=== PATIENT | male | born 1980 | race Caucasian/White ===

== ENCOUNTER 2016-09-19 13:21 | Emergency (ER) | payer OTHER ==
[~2016-09-19] VITALS: Ht 172.7 cm; Wt 81.6 kg
[~2016-09-19 13:21] MED LIST: ALBU6.7H IH; ALPR1TAB2 PO; AZIT250T6 PO; CLON0.25 PO; CYCL10TA2 PO; HYDR-971 PO; HYDR1TAB10 PO; IBUP200T5 PO; PRED20TA PO; SERT100T8 PO
--- NOTE | 2016-09-19 13:45 | ED.ADGEN ---
Past History Past Medical History: Schizophrenia Past Surgical History: No Surgical History Smoking: Cigarettes, Greater than 1 pack/day Alcohol Use: Rarely Drug Use: Marijuana Adult General Chief Complaint Chief Complaint Right arm pain [facility] HPI Patient is a 35 year old male who presents with right arm pain. He was lifting a trash can into a dumpster around 9 AM this morning when it fell backwards into his arm. He's been having right arm/bicep pain since then. States it looks deformed. States it hurts more when he tries to lift it. He denies any fevers chills nausea vomiting arm or hand numbness or tingling. Review of Systems Review of Systems Constitutional: Denies fever or chills [] Eyes: Denies change in visual acuity, redness, or eye pain [] HENT: Denies nasal congestion or sore throat [] Respiratory: Denies cough or shortness of breath [] Cardiovascular: No additional information not addressed in HPI [] GI: Denies abdominal pain, nausea, vomiting, bloody stools or diarrhea [] : Denies dysuria or hematuria [] Musculoskeletal: Denies back pain, positive for right upper arm pain Integument: Denies rash or skin lesions [] Neurologic: Denies headache, focal weakness or sensory changes [] Endocrine: Denies polyuria or polydipsia [] Allergies Allergies Allergies Coded Allergies Type Severity Reaction Last Updated Verified No Known Drug Allergies 10/23/13 No Physical Exam Physical Exam Constitutional: Well developed, well nourished, no acute distress, non-toxic appearance. [] HENT: Normocephalic, atraumatic, bilateral external ears normal, oropharynx moist, no oral exudates, nose normal. [] Eyes: PERRLA, EOMI, conjunctiva normal, no discharge. [] Neck: Normal range of motion, no tenderness, supple, no stridor. [] Cardiovascular:Heart rate regular rhythm, no murmur [] Lungs & Thorax: Bilateral breath sounds clear to auscultation [] Abdomen: Bowel sounds normal, soft, no tenderness, no masses, no pulsatile masses. [] Skin: Warm, dry, no erythema, no rash. [] Back: No tenderness, no CVA tenderness. [] Extremities: Tender to palpation over the right biceps with slight laxity noted , nontender through the elbow, radial pulse 2+ in the right upper extremity,no cyanosis, no clubbing, ROM intact, no edema. [] Neurologic: Alert and oriented X 3, normal motor function, normal sensory function, no focal deficits noted. [] Psychologic: Affect normal, judgement normal, mood normal. [] Current Patient Data Vital Signs Vital Signs Date Time Temp Pulse Resp B/P Pulse Ox O2 Delivery O2 Flow Rate FiO2 09/19/16 14:30 85 20 117/70 100 Room Air 09/19/16 13:21 98.0 EKG EKG [] Radiology/Procedures Radiology/Procedures [address] [address] IMAGING REPORT Signed PATIENT: ELLA VILLAFANA ACCOUNT: [id number] : 1980 LOCATION: ER AGE: 35 SEX: M EXAM STATUS: REG ER ORD. PHYSICIAN: LALO DUBOIS MD REASON: pain PROCEDURE: HUMERUS RIGHT Right humerus, 2 views, 09/19/2016: History: Pain No fracture or bony abnormality is detected. The soft tissues are unremarkable. IMPRESSION: No significant right humeral abnormality is detected. DICTATED AND SIGNED BY: FARRAH PARK MD DATE: 09/19/16 5650 CC: VITO STORY MD; LALO DUBOIS MD ~ Course & Med Decision Making Course & Med Decision Making Pertinent Labs and Imaging studies reviewed. (See chart for details) He has a contusion of his right biceps and a possible tendon tear. X-rays of his right humerus did not show any acute abnormalities. He has good radial pulse. He is using ice currently. 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 He is instructed to use ice for brief periods of time and not freeze his arm he also use [id number] Advil and if his arm gets more painful, swollen his fingers turn numb or blue or has weakness in his hand or wrist return back to ER otherwise he is to follow-up with primary care physician and will likely need an outpatient MRI of his upper extremity to rule out biceps tendon tear. At this point is full range of motion and some tenderness of it and at these symptoms resolve that he does not need this test. He is agreeable plan and being discharged in stable condition at this time. Final Impression Final Impression Right arm contusion Problems: Dragon Disclaimer Dragon Disclaimer This electronic medical record was generated, in whole or in part, using a voice recognition dictation system. LALO DUBOIS MD September 19, 2016 13:45
--- NOTE | 2016-09-19 14:27 | RAD ---
Right humerus, 2 views, 09/19/2016: History: Pain No fracture or bony abnormality is detected. The soft tissues are unremarkable. IMPRESSION: No significant right humeral abnormality is detected.
[2016-09-19 14:30] VITALS: BP 117/70
== END 2016-09-19 14:30 | disposition home or self-care (01) ==
LOC: ER 13:21
DX: S40.021A Contusion of right upper arm, initial encounter (principal); F20.9 Schizophrenia, unspecified; F17.210 Nicotine dependence, cigarettes, uncomplicated; F12.10 Cannabis abuse, uncomplicated; W20.8XXA Other cause of strike by thrown, projected or falling object, initial encounter; Y93.89 Activity, other specified; Y92.89 Other specified places as the place of occurrence of the external cause; Y99.8 Other external cause status
CPT/HCPCS: 73060; 99284

== ENCOUNTER 2016-11-26 16:07 | Emergency (ER) | payer OTHER ==
[~2016-11-26] VITALS: Ht 172.7 cm; Wt 67.0 kg
[~2016-11-26 16:07] MED LIST changes: +CYCL-331 PO; -CYCL10TA2 PO; +IBUP-1227 PO; -IBUP200T5 PO
[2016-11-26 16:10] VITALS: BP 153/94
--- NOTE | 2016-11-26 16:25 | PHYS DOC ---
General Chief Complaint: CELLULITIS Stated Complaint: LEFT HAND INJURY Time Seen by MD: 16:15 Source: patient Exam Limitations: no limitations Problems: History of Present Illness Initial Comments Patient is a 35-year-old male who comes to the ED complaining of worker's comp injury. Patient states that yesterday while peeling potatoes he suffered a small laceration on his left index finger. He states that since that time he's had swelling and increased discomfort. He denies fever chills sweats or myalgias, no numbness tingling weakness or radiating symptoms. He is tachycardic on arrival and will require evaluation to rule out sepsis. Onset: yesterday Severity: severe Pain/Injury Location: left hand, left 2nd finger, left 3rd finger Method of Injury: incised Modifying Factors: worse with jarring, worse with movement, improves with rest Allergies: Coded Allergies: No Known Drug Allergies (Unverified , 10/23/13) Past Medical History Medical History: other (schizophrenia) Surgical History: no surgical history Social History Smoker: greater than 1 pack/day Alcohol: occasionally Drugs: marijuana Review of Systems Constitutional: denies chills, denies fever, malaise Respiratory: denies cough, denies shortness of breath, denies wheezing Cardiovascular: denies chest pain, denies palpitations, denies syncope Gastrointestinal: denies abdominal pain, denies nausea, denies vomiting Musculoskeletal: see HPI Skin: see HPI Psychiatric/Neurological: denies headache, denies numbness, denies paresthesia Physical Exam General Appearance: no apparent distress HEENT: PERRL/EOMI, normal ENT inspection Neck: non-tender, supple Cardiovascular/Respiratory: normal peripheral pulses, tachycardia Back: no CVA tenderness, no vertebral tenderness Hand: infection (erythema noted at the left index finger and proximal aspect of the third finger extends 3 cm at the dorsal hand. Painless range of motion no purulence extremity is neurovascularly intact.) Neurologic/Tendon: normal sensation, normal motor functions, normal tendon functions, responds to pain, no evidence tendon injury Psychiatric: alert, oriented x 3 Skin: warm/dry (left hand as above) Orders, Labs, Meds EKG: Normal sinus rhythm 70 bpm, left ventricular hypertrophy, baseline wander artifact noted no STEMI. Interpreted by me Pertinent labs: White blood cells 14.4, potassium 3.3 (a 20 mEq of Klor-Con given by mouth), urine drug screen positive for amphetamine/methamphetamine otherwise labs reassuring. Lactic acid is normal. 1830: Workup is complete patient still has about 1 hour left on his vancomycin intravenous infusion. Discharge paperwork is completed pending no further issues. Departure Time of Disposition: 17:42 Disposition: 01 HOME, SELF-CARE Diagnosis: cellulitis left hand, amphetamethamphetamine abuse Condition: GOOD Patient Instructions: Cellulitis, Ujzk-he-[id number], Methamphetamine Abuse, Complications Additional Instructions: Discontinue tobacco marijuana and methamphetamine abuse. Seek medical assistance if necessary. Warm compresses to left hand 15-20 minutes 4-6 times daily. Prescription: Bactrim DS quantity 20, Bactroban ointment Follow-up with your doctor in 3-5 days for recheck. Return to the ED with new or changing symptoms. Follow-up with your employer regarding Worker's Compensation injury. RAJIV BELLO DO Nov 26, 2016 16:25
[2016-11-26] MEDS ORDERED: VANCOMYCIN PER PHARMACY MC ONE (16:30)
[2016-11-26] MEDS ORDERED: KETOROLAC 30 MG/ML VIAL. IV ONE (16:35)
[2016-11-26] MEDS ORDERED: DIPHTH,PERTUSS(ACELL),TET TOX 0.5 ML DISP.SYRIN. VAX IM ONE (16:35)
[2016-11-26] MEDS ORDERED: IV NORMAL SALINE 1,000ML 1,000 ML IV SCH (16:35)
[2016-11-26] MEDS ORDERED: VANCOMYCIN 1.75 GM in IV NORMAL SALINE 500ML 500 ML IV ONE (16:45)
--- NOTE | 2016-11-26 16:57 | EKG ---
[address] [address] Test Date: 2016-11-26 Test Time: 16:34:23 Pat Name: ELLA VILLAFANA Department: Room: Gender: M [employer] Director: CRISTEL : 1980 Requested By: RAJIV BELLO Order Number: [id number] Reading MD: Measurements Intervals [place] Rate: 78 P: 67 CT: 138 QRS: 71 QRSD: 102 T: 48 QT: 356 QTc: 409 Interpretive Statements SINUS RHYTHM CONSIDER LEFT VENTRICULAR HYPERTROPHY QRS(T) CONTOUR ABNORMALITY CANNOT RULE OUT ANTEROSEPTAL MYOCARDIAL DAMAGE CONSIDER INFERIOR MYOCARDIAL DAMAGE RI6.01 Unconfirmed report No previous ECG available for comparison
[2016-11-26] MEDS: MORPHINE SULFATE 4 MG/ML DISP.SYRIN. IV/SQ PRN ×2 (17:00→17:45)
[2016-11-26 17:09] LABS: BASO # 0.1 x10^3/uL (0.0-0.2); BASO % 1 % (0-3); EOS % 0 % (0-3); LYMPH # 1.6 x10^3/uL (1.0-4.8); LYMPH % 11 % (24-48); MEAN CORPUSCULAR HEMOGLOBIN 31 pg (25-35); MEAN CORPUSCULAR HGB CONC 34 g/dL (31-37); MEAN CORPUSCULAR VOLUME 91 fL (79-100); MONO # 1.7 x10^3/uL (0.0-1.1); MONO % 12 % (0-9); NEUT % 77 % (31-73); PLATELET COUNT 177 x10^3/uL (140-400); RED BLOOD COUNT 4.83 x10^6/uL (4.30-5.70); RED CELL DISTRIBUTION WIDTH 12.9 % (11.5-14.5); WHITE BLOOD COUNT 14.4 x10^3/uL (4.0-11.0)
[2016-11-26 17:25] LABS: ALBUMIN 4.3 g/dL (3.4-5.0); ALBUMIN/GLOBULIN RATIO 1.2 (1.0-1.7); CALCIUM 9.3 mg/dL (8.5-10.1); CREATININE 1.2 mg/dL (0.7-1.3); GFR 68.9; POTASSIUM 3.3 mmol/L (3.5-5.1); TOTAL PROTEIN 7.9 g/dL (6.4-8.2)
[2016-11-26 17:34] LABS: CLARITY,URINE CLEAR; COLOR,URINE ORANGE; GLUCOSE,URINE NEG (NEG)
[2016-11-26 17:35] LABS: RBC,URINE 0 /HPF (0-2); WBC,URINE OCC /HPF (0-4)
[2016-11-26 17:36] LABS: BACTERIA,URINE 0 /HPF (0-FEW); BARBITURATES NEG (NEG); BENZODIAZEPINES NEG (NEG); CANNABINOIDS NEG (NEG); COCAINE NEG (NEG); METHADONE NEG (NEG); OPIATES NEG (NEG); PHENCYCLIDINE NEG (NEG); SQUAMOUS EPITHELIAL CELL,UR OCC /LPF
[2016-11-26 17:40] LABS: AMPHETAMINE/METHAMPHETAMINE POS (NEG)
[2016-11-26] MEDS ORDERED: POTASSIUM CHLORIDE 20 MEQ TABLET.ER. PO ONE (18:30)
== END 2016-11-26 19:25 | disposition home or self-care (01) ==
LOC: ER 16:07
DX: L03.114 Cellulitis of left upper limb (principal); S61.211A Laceration without foreign body of left index finger without damage to nail, initial encounter; F15.10 Other stimulant abuse, uncomplicated; F12.10 Cannabis abuse, uncomplicated; F20.9 Schizophrenia, unspecified; F17.200 Nicotine dependence, unspecified, uncomplicated; W26.0XXA Contact with knife, initial encounter; Y93.89 Activity, other specified; Y99.8 Other external cause status; Y92.89 Other specified places as the place of occurrence of the external cause
CPT/HCPCS: 36415; 80053; 80305; 80320; 81001; 83605; 84484; 85027; 87040; 93005; 96365; 96366; 96375; 96376; 99285; J1885; J2270; J3370; J7040; G0480; G0481; J7030

== ENCOUNTER 2017-09-17 08:48 | Emergency (ER) | payer OTHER ==
[~2017-09-17] VITALS: Ht 165.1 cm; Wt 66.8 kg
[2017-09-17] MEDS ORDERED: AMOXICILLIN/K CLAV 875/125MG TABLET. PO ONE (10:00)
[2017-09-17] MEDS ORDERED: BUPIVACAINE MPF 0.5% 30 ML VIAL. SQ ONE (10:00)
[2017-09-17] MEDS ORDERED: AMOX1TAB61 PO (10:10)
--- NOTE | 2017-09-17 10:10 | PHYS DOC ---
Past History Past Medical History: No Pertinent History Past Surgical History: No Surgical History Smoking: Cigarettes, Greater than 1 pack/day Alcohol Use: None Drug Use: Marijuana Adult General Chief Complaint Chief Complaint: DENTAL PROBLEM HPI HPI Patient is a 36 year old M who presents with upper dental pain over the past 2- 3 days. Coleman does have chronic dental pain however this is much worse. His pain is worse with eating and drinking. He has no other associated symptoms. His no other exacerbating or relieving factors. Review of Systems Review of Systems Constitutional: Denies fever or chills [] Eyes: Denies change in visual acuity, redness, or eye pain [] HENT: Denies nasal congestion or sore throat [] Respiratory: Denies cough or shortness of breath [] Cardiovascular: No additional information not addressed in HPI [] GI: Denies abdominal pain, nausea, vomiting, bloody stools or diarrhea [] : Denies dysuria or hematuria [] Musculoskeletal: Denies back pain or joint pain [] Integument: Denies rash or skin lesions [] Neurologic: Denies headache, focal weakness or sensory changes [] Endocrine: Denies polyuria or polydipsia [] All other systems were reviewed and found to be within normal limits, except as documented in this note. Family History Family History No pertinent family medical history reported Current Medications Current Medications Current medications reviewed Current Medications Medications (Trade) Dose Ordered Sig/Marivel Start Time Stop Time Status Last Admin Dose Admin Amoxicillin/ Clavulanate Potassium (Augmentin 875/ 125mg) 1 tab 1X ONCE 09/17/17 10:00 09/17/17 10:01 DC 09/17/17 10:00 1 TAB Bupivacaine HCl (Sensorcaine Mpf 0.5%) 30 ml 1X ONCE 09/17/17 10:00 09/17/17 10:01 DC 09/17/17 10:00 30 ML Allergies Allergies Allergies Coded Allergies Type Severity Reaction Last Updated Verified No Known Drug Allergies 10/23/13 No Physical Exam Physical Exam Constitutional: Well developed, well nourished, no acute distress, non-toxic appearance. [] HENT: Normocephalic, atraumatic, very poor dentition with decay noted in the upper left incisor, swelling in the upper left lip Eyes: EOMI, conjunctiva normal, no discharge. [] Neck: Normal range of motion, no tenderness, supple, no stridor. [] Cardiovascular:Heart rate regular rhythm, no murmur [] Lungs & Thorax: Bilateral breath sounds clear to auscultation [] Extremities: No tenderness, no cyanosis, no clubbing, ROM intact, no edema. [] Neurologic: Alert and oriented X 3, normal motor function, normal sensory function, no focal deficits noted. [] Psychologic: Affect normal, judgement normal, mood normal. [] Current Patient Data Vital Signs Vital signs. Please review nursing duct mentation for specifics EKG EKG [] Radiology/Procedures Radiology/Procedures 1 mL bupivacaine 0.5% was injected at the base of the upper left incisor that was affected. Verbal consent was obtained prior to the procedure. He was started on oral antibiotic to prevent discharge Course & Med Decision Making Course & Med Decision Making Pertinent Labs and Imaging studies reviewed. (See chart for details) [] Dragon Disclaimer Dragon Disclaimer This electronic medical record was generated, in whole or in part, using a voice recognition dictation system. Departure Departure: Impression: Primary Impression: Dental infection Disposition: 01 HOME, SELF-CARE Condition: STABLE Referrals: VITO STORY MD (PCP) Patient Instructions: Dental Abscess Additional Instructions: Coleman was seen in the emergency department for dental pain. No emergency medical condition was found on history or physical exam. He was given numbing medication for his pain and started on antibiotics in the emergency room. He is given a prescription for antibiotics and encouraged to follow up with a dentist as soon as possible for further management. Scripts Amoxicillin/Potassium Clav (AUGMENTIN 875-125 TABLET) 1 Each Tablet 1 TAB PO BID for 14 Days, #28 TAB Prov: VITO BROOKE MD 09/17/17 VITO BROOKE MD Sep 17, 2017 10:10
[2017-09-17] MEDS ORDERED: HYDROcodone/APAP 10/325 1 TAB TABLET PO ONE (10:45)
[2017-09-17 10:58] VITALS: BP 132/83
== END 2017-09-17 10:59 | disposition home or self-care (01) ==
LOC: ER 08:48
DX: K04.7 Periapical abscess without sinus (principal); F17.210 Nicotine dependence, cigarettes, uncomplicated; F12.10 Cannabis abuse, uncomplicated
CPT/HCPCS: 64400; 99284; J3490

== ENCOUNTER 2020-10-20 12:20 | Emergency (ER) | payer OTHER ==
[~2020-10-20] VITALS: Ht 165.1 cm; Wt 66.8 kg
[~2020-10-20 12:20] MED LIST changes: +ALBU2.5V8 IH; -ALBU6.7H IH; +AMOX1TAB61 PO; +HYDR-3165 PO; -HYDR-971 PO; -IBUP-1227 PO; +IBUP-1673 PO; +SERT-269 PO; -SERT100T8 PO
[2020-10-20 12:31] VITALS: BP 121/77
--- NOTE | 2020-10-20 12:48 | RAD ---
EXAM: Right hand, 3 views. HISTORY: Hand injury. COMPARISON: None. FINDINGS: 3 views of the right hand are obtained. There is no fracture, dislocation or subluxation. N o radiodense foreign body is seen. IMPRESSION: No acute osseous finding. Electronically signed by: Julissa Manning MD (10/20/2020 12:45 PM) [id number]
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
[2020-10-20] MEDS: HYDROcodone/APAP 5/325MG 1 TAB TABLET PO ONE (13:29)
== END 2020-10-20 13:32 | disposition home or self-care (01) ==
LOC: ER 12:20
DX: S60.221A Contusion of right hand, initial encounter (principal); F17.210 Nicotine dependence, cigarettes, uncomplicated; Y08.89XA Assault by other specified means, initial encounter; Y93.89 Activity, other specified; Y92.89 Other specified places as the place of occurrence of the external cause; Y99.8 Other external cause status
CPT/HCPCS: 73130; 99283

== ENCOUNTER 2021-01-16 11:57 | Emergency (ER) | payer OTHER ==
[~2021-01-16] VITALS: Ht 165.1 cm; Wt 66.8 kg
[2021-01-16 12:15] VITALS: BP 131/74
[2021-01-16] MEDS ORDERED: CLIN150C16 PO (12:28)
--- NOTE | 2021-01-16 12:29 | PHYS DOC ---
Past History Past Medical History: No Pertinent History (LUIS ALBERTO NEWSOME APRN) Past Surgical History: No Surgical History (LUIS ALBERTO NEWSOME APRN) Smoking: Cigarettes, Greater than 1 pack/day Alcohol Use: Rarely Drug Use: Marijuana (LUIS ALBERTO NEWSOME APRN) General Adult EDM: Chief Complaint: LOWER EXT PAIN HPI: HPI: Patient is a 40-year-old male who presents to the ER for ulcerations to bilateral lower extremities. Patient reports that he got his legs with a wound VAC in 1 month ago. Patient rates pain 10 out of 10. He is able to bear weight and ambulate. Patient denies any recent antibiotics or fevers. Patient's vital signs are stable. (LUIS ALBERTO NEWSOME APRN) Review of Systems: Review of Systems: 14 body systems of the review of systems have been reviewed. See HPI for pertinent positive and negative responses, otherwise all other systems are negative, nonpertinent or noncontributory (LUIS ALBERTO NEWSOME APRN) Current Medications: Current Meds: Current Medications Medications (Trade) Dose Ordered Sig/Marivel Start Time Stop Time Status Last Admin Dose Admin Clindamycin HCl (Cleocin) 450 mg 1X ONCE 01/16/21 12:30 01/16/21 12:31 UNV (LUIS ALBERTO NEWSOME APRN) Allergies: Allergies: Allergies Coded Allergies Type Severity Reaction Last Updated Verified No Known Drug Allergies 10/23/13 No (LUIS ALBERTO NEWSOME APRN) Physical Exam: PE: Constitutional: Well developed, well nourished, no acute distress, non-toxic appearance. [] HENT: Normocephalic, atraumatic Eyes: PERRL, EOMI, conjunctiva normal, no discharge. [] Neck: Normal range of motion, no stridor Cardiovascular: Normal peripheral perfusion Lungs & Thorax: Normal work of breathing, no tachypnea Abdomen: Bowel sounds normal, soft, no tenderness, no masses, no pulsatile masses. [] Skin: Warm, dry, ulcerations noted to bilateral lower extremities that are circular with surrounding erythema, warmth and purulent drainage, no drainable abscess noted, range of motion intact in bilateral lower extremities are neurovascularly intact Back: Normal range of motion Extremities: No tenderness, no cyanosis, no clubbing, ROM intact, no edema. [] Neurologic: Alert and oriented X 3, normal motor function, normal sensory function, no focal deficits noted. [] Psychologic: Affect normal, judgement normal, mood normal. [] (LUIS ALBERTO NEWSOME APRN) EKG: EKG: [] (LUIS ALBERTO NEWSOME APRN) Radiology/Procedures: Radiology/Procedures: [] (LUIS ALBERTO NEWSOME APRN) Heart Score: C/O Chest Pain: No Risk Factors: Risk Factors: DM, Current or recent (<one month) smoker, HTN, HLP, family history of CAD, obesity. Risk Scores: Score 0 - 3: 2.5% MACE over next 6 weeks - Discharge Home Score 4 - 6: 20.3% MACE over next 6 weeks - Admit for Clinical Observation Score 7 - 10: 72.7% MACE over next 6 weeks - Early Invasive Strategies (LUIS ALBERTO NEWSOME APRN) Course & Med Decision Making: Course & Med Decision Making Pertinent Labs and Imaging studies reviewed. (See chart for details) Patient is a 40-year-old male being seen in the ER for ulcerations noted to his lower extremities. Patient is afebrile and his vital signs are stable. He has no medical history. Patient treated with an antibiotic, given first dose in the ER. He was advised to take Tylenol and ibuprofen and follow-up with his primary care provider. My MDM discharge (LUIS ALBERTO NEWSOME APRN) Course & Med Decision Making I was the Attending physician on the above date of service of this patient. This patient was evaluated, examined, treated, and dispositioned from the emergency department by the mid-level practitioner. Although I was working at the time , no assistance was requested. Electronically signed, Sam Chaidez DO (SAM CHAIDEZ DO) Shalonda Disclaimer: Shalonda Disclaimer: This electronic medical record was generated, in whole or in part, using a voice recognition dictation system. (LUIS ALBERTO NEWSOME APRN) Departure Departure: Impression: Primary Impression: Cellulitis Qualified Codes: L03.119 - Cellulitis of unspecified part of limb Disposition: HOME / SELF CARE / HOMELESS Condition: GOOD Referrals: VITO STORY MD (PCP) Patient Instructions: Cellulitis Additional Instructions: You were seen in the ER for ulcerations noted to you both of your legs. Physical exam is consistent with cellulitis. You were given your first dose of antibiotic in the ER and discharged home with a prescription. Please start and finish this antibiotic completely. You can take Tylenol or ibuprofen for pain at home. Please avoid picking at these wounds. Follow-up with your primary care provider on Sunday regarding your ER visit. If you develop worsening of your pain, high fevers refractory to treatment, intractable nausea or vomiting, inability to bear weight or ambulate then return to the ER. EMERGENCY DEPARTMENT GENERAL DISCHARGE INSTRUCTIONS Thank you for coming to [facility] (ED) today and trusting us with you care. We trust that you had a positivie experience in our Emergency Department. If you wish to speak to the department management, you may call the director at [phone]. YOUR FOLLOW UP INSTRUCTIONS ARE FOLLOWS: 1. Do you have a private Doctor? If you do not have a private doctor, please ask for a resource list of physicians or clinics that may be able to assist you with follow up care. 2. The Emergency Physician has interpreted your x-rays. The X-Ray specialist will also review them. If there is a change in the findings, you will be notified in 48 hours when at all possible. 3. A lab test or culture has been done, your results will be reviewed and you will be notified if you need a change in treatment. ADDITIONAL INSTRUCTIONS AND INFORMATION: 1. Your care today has been supervised by a physician who is specially trained in emergency care. Many problems require more than one evaluation for a complete diagnosis and treatment. We recommend that you schedule your follow up appointment as recommended to ensure complete treatment of you illness or injury. If you are unable to obtain follow up care and continue to have a problem, or if your condition worsens, we recommend that you return to the ED. 2. We are not able to safely determine your condition over the phone nor are we able to give sound medical advice over the phone. For these safety reasons, if you call for medical advice we will ask you to come to the ED for further evaluation. 3. If you have any questions regarding these discharge instructions please call the ED at [phone]. SAFETY INFORMATION: In the interest of safety, wellness, and injury prevention; we encourage you to wear your sealbelt, if you smoke; quite smoking, and we encourage family to use a protective helmet for bicycling and other sporting events that present an increased risk for head injury. IF YOUR SYMPTOMS WORSEN OR NEW SYMPTOMS DEVELOP, OR YOU HAVE CONCERNS ABOUT YOUR CONDITION; OR IF YOUR CONDITION WORSENS WHILE YOU ARE WAITING FOR YOUR FOLLOW UP APPOINTMENT; EITHER CONTACT YOUR PRIMARY CARE DOCTOR, THE PHYSICIAN WHOSE NAME AND NUMBER YOU WERE GIVEN, OR RETURN TO THE ED IMMEDIATELY. Scripts Clindamycin Hcl (CLINDAMYCIN HCL) 150 Mg Capsule 450 MG PO TID for infection for 7 Days, #21 CAP 0 Refills Prov: LUIS ALBERTO NEWSOME APRN 01/16/21 LUIS ALBERTO NEWSOME APRN Jan 16, 2021 12:29 SAM CHAIDEZ DO Jan 18, 2021 12:52
[2021-01-16] MEDS ORDERED: CLINDAMYCIN HCL 150 MG CAPSULE PO ONE (12:30)
== END 2021-01-16 12:49 | disposition home or self-care (01) ==
LOC: ER 11:57
DX: L03.116 Cellulitis of left lower limb (principal); L03.115 Cellulitis of right lower limb; L97.929 Non-pressure chronic ulcer of unspecified part of left lower leg with unspecified severity; F17.210 Nicotine dependence, cigarettes, uncomplicated
CPT/HCPCS: 99283